=== PATIENT | female | born 1930 | race Caucasian/White ===

== ENCOUNTER 2016-10-17 09:27 | Inpatient (IN) | payer MEDICARE ==
[~2016-10-17] VITALS: Ht 167.6 cm; Wt 60.0 kg
[~2016-10-17 09:27] MED LIST: ALPR0.25 PO; AMLO5TAB4 PO; ASPI-496 PO; CARV6.252 PO; CEPH-376 PO; CITA10TA4 PO; CLON-364 PO; CLOP75TA22 PO; CYAN10008 PO; FAMO20TA7 PO; HYDR-3138 PO; LACT1CAP24 PO; LISI-167 PO; LISI5TAB7 PO; LORA-445 PO; METF10002 PO; METF500T27 PO; METO25TA35 PO; PRAV10TA2 PO; SERT100T5 PO; SERT50TA PO
[2016-10-17] MEDS ORDERED: SODIUM CHLORIDE 0.9% 1,000 ML IV ONE (09:39)
[2016-10-17] MEDS ORDERED: SODIUM CHLORIDE 0.9% 1,000ML IVBOLUS ONE (10:00)
[2016-10-17] MEDS ORDERED: ASPIRIN 81 MG TABLET CHEW PO ONE (10:00)
[2016-10-17 10:13] LABS: ASPARTATE AMINO TRANSFERASE 27 U/L (15-37); BLOOD UREA NITROGEN 19 mg/dL (7-18)
[2016-10-17 10:20] LABS: IS PT STATUS REG ER OR PRE ER? YES
[2016-10-17] MEDS ORDERED: CLEVIDIPINE 50 ML IV PRN (10:25)
[2016-10-17 12:31] VITALS: BP 119/71
[2016-10-17] MEDS ORDERED: MORPHINE SULFATE 4 MG/ML, 1ML IVPush PRN ×2 (13:00→14:30)
[2016-10-17] MEDS ORDERED: ONDANSETRON 2MG/ML, 2ML IVP PRN (13:00)
[2016-10-17] MEDS ORDERED: LABETALOL 5MG/ML, 20ML IV PRN (13:00)
[2016-10-17] MEDS ORDERED: morphine SULFATE ORAL.CONC 20 MG/ML BC PRN (14:30)
[2016-10-17] MEDS ORDERED: morphine SULFATE ORAL.CONC 20 MG/ML SL PRN (14:30)
[2016-10-17] MEDS ORDERED: SCOPOLAMINE PATCH, 1.5MG PATCH.TD72 TD PRN ×2 (14:30)
[2016-10-17] MEDS: LORazepam INTENSOL 2 MG/ML SL PRN ×2 (18:24→21:33)
[2016-10-17] MEDS: morphine SULFATE 125 MG in SODIUM CHLORIDE 0.9% 237.5 ML IV PRN (19:17)
[2016-10-17] MEDS: ATROPINE OPHTH SOLN 1%, 5ML BC PRN (22:54)
[2016-10-18] MEDS: LORazepam 2 MG/ML, 1ML IVPush PRN (15:39)
[2016-10-19] MEDS: morphine SULFATE 125 MG in SODIUM CHLORIDE 0.9% 237.5 ML IV PRN (06:53)
[2016-10-19] MEDS: ATROPINE OPHTH SOLN 1%, 5ML BC PRN (09:24)
[2016-10-19] MEDS: LORazepam 2 MG/ML, 1ML IVPush PRN (09:24)
[2016-10-20] MEDS: morphine SULFATE 125 MG in SODIUM CHLORIDE 0.9% 237.5 ML IV PRN ×2 (06:14→22:33)
[2016-10-21] MEDS: morphine SULFATE 125 MG in SODIUM CHLORIDE 0.9% 237.5 ML IV PRN ×2 (10:01→20:32)
[2016-10-22] MEDS: morphine SULFATE 125 MG in SODIUM CHLORIDE 0.9% 237.5 ML IV PRN ×2 (08:47→19:21)
[2016-10-22] MEDS: LORazepam 2 MG/ML, 1ML IVPush PRN (13:08)
[2016-10-23] MEDS: morphine SULFATE 125 MG in SODIUM CHLORIDE 0.9% 237.5 ML IV PRN ×2 (06:16→16:52)
[2016-10-23] MEDS: LORazepam 2 MG/ML, 1ML IVPush PRN ×7 (10:11→23:02)
[2016-10-24] MEDS: morphine SULFATE 125 MG in SODIUM CHLORIDE 0.9% 237.5 ML IV PRN (00:11)
[2016-10-24] MEDS: LORazepam 2 MG/ML, 1ML IVPush PRN (03:39)
== END 2016-10-24 11:40 | disposition expired | DRG 64 ==
LOC: ED 10:19 → EDIP 10:55 → 3NW 12:55
DX: I61.8 Other nontraumatic intracerebral hemorrhage (principal); G93.41 Metabolic encephalopathy; I63.9 Cerebral infarction, unspecified; G91.9 Hydrocephalus, unspecified; R47.01 Aphasia; E87.0 Hyperosmolality and hypernatremia; E11.9 Type 2 diabetes mellitus without complications; F03.90 Unspecified dementia, unspecified severity, without behavioral disturbance, psychotic disturbance, mood disturbance, and anxiety; I10 Essential (primary) hypertension; I25.10 Atherosclerotic heart disease of native coronary artery without angina pectoris; R62.7 Adult failure to thrive; M19.90 Unspecified osteoarthritis, unspecified site; Z51.5 Encounter for palliative care; F41.9 Anxiety disorder, unspecified; Z66 Do not resuscitate; Z79.4 Long term (current) use of insulin; Z86.73 Personal history of transient ischemic attack (TIA), and cerebral infarction without residual deficits; Z87.891 Personal history of nicotine dependence; Z88.3 Allergy status to other anti-infective agents; Z82.49 Family history of ischemic heart disease and other diseases of the circulatory system
CPT/HCPCS: 36415; 70450; 71010; 80053; 83605; 83880; 84484; 85025; 85610; 93005; 96360; J2060; J2270; J7030; J7050